=== PATIENT | male | born 2000 | race Caucasian/White ===

== ENCOUNTER 2025-11-03 17:49 | Emergency (ER) | payer OTHER, SELFPAY ==
[2025-11-03 19:02] VITALS: BP 139/96; PULSE 96; RESP 18; TEMP 37.5; O2SAT 98; BMI 25.7
--- NOTE | 2025-11-03 19:11 | EDNOTE_ITS ---
Upper Respiratory Inf. RME/HPI General Chief Complaint: Dental/Oral/Throat Stated Complaint: POSS THROAT ABSCESS; SENT BY [facility] Time Seen by Provider: 11/03/25 19:09 Arrival date/time: 11/03/25 17:49 25M with no significant PMH presents to ED with possible throat abscess after testing positive for strep at PCP. ABX were not sent because PCP got scared. Limitations: no limitations Related Data Previous Rx's ?Medication ?Instructions ?Recorded ibuprofen 800 mg tablet 800 mg PO TID PRN pain #30 t abs 12/02/21 amoxicillin 875 mg-potassium 1 tab PO BID 10 days #20 tabs 11/03/25 clavulanate 125 mg tablet Allergies Allergy/AdvReac Type Severity Reaction Status Date / Time No Known Allergies Allergy Verified 11/03/25 17:52 Review of Systems Review of Systems Systems Reviewed: All systems reviewed, normal except as documented ENT Ears, Nose, Mouth, and Throat: Reports as per HPI and Reports sore throat Past Medical History Social History SMOKING STATUS: Current every day smoker ED Exam General Limitations: Present no limitations General appearance: Present alert and in no apparent distress Head Head exam: Present atraumatic ENT ENT exam: Present mucous membranes moist Expanded ENT Exam Throat exam: Present tonsillar erythema and tonsillar exudate (R>L); Absent tonsillomegaly, R peritonsillar mass, L peritonsillar mass or muffled voice Neck Neck exam: Present normal inspection, full ROM and trachea midline Chest Chest inspection: Present normal inspection and symmetric chest wall rise Neurological Exam Neurological exam: Present alert and oriented X3 Psychiatric Psychiatric exam: Present normal affect and normal mood Skin Skin exam: Present warm, dry, intact and normal color Course Quality Measures none Vital Signs Vital signs: Vital Signs Temperature 99.5 F 11/03/25 19:02 Pulse Rate 96 11/03/25 19:02 Respiratory Rate 18 11/03/25 19:02 Blood Pressure 139/96 H 11/03/25 19:02 Pulse Oximetry (%) 98 11/03/25 19:02 Oxygen Delivery Method Room Air 11/03/25 19:02 O2 at 98% on RA and WNLs Upper Respiratory Infection MDM Narrative MDM Narrative:: 25M with no significant PMH presents to ED with possible throat abscess after testing positive for strep at PCP. ABX were not sent because PCP got scared. Physical exam reveals red oropharynx with exudates (R>L). No uvula deviation, muffled voice, or tongue elevation. Patient is afebrile, calm, and alert. Will give Augmentin in case of small abscess, which would be managed with meds anyway. Patient data External records reviewed:: [facility] previous records Clinical information provided by:: patient Social determinants that could affect healthcare access:: none Patient has the following chronic illnesses:: black How is presenting disease/condition affected by chronic disease/condition?: no chronic disease Evaluation data The following diagnostics were reviewed and interpreted by me:: other (specify) (none) Lab and/or radiology exams considered but not ordered:: not ordered Interpretation Summary: n/a Medications / Prescriptions Medications or Prescriptions considered but not ordered:: not ordered Medication administrations:: n/a Consultations Consultation(s) initiated? (list below): No Diagnosis Upper Respiratory Differential Diagnosis: upper respiratory infection, croup, otitis media, sinusitis, viral infection, bronchitis, influenza and pharyngitis Most likely diagnosis given after review of the tests above:: strep throat Admission Indicated Admission indicated?: not indicated Admission Request Was there a request for admission?: No Disposition Plan Disposition Plan: Discharge Discharge Attestation Discharge Attestation: The patient and all family members were given an opportunity to ask questions and understood the discharge instructions. Discharge instructions specifically effects, indications for sooner follow up or return to the emergency department, and the expected course of current diagnosis. Patient condition: Stable Discharge Plan Plan Patient Disposition: HOME (Self Care) Discharge Disposition comment: Stable Prescriptions/Referrals Prescriptions/Med Rec: New amoxicillin-pot clavulanate 875-125 mg tablet 1 tab PO BID 10 Days Qty: 20 0RF No Action ibuprofen 800 mg tablet 800 mg PO TID PRN (Reason: pain) Qty: 30 0RF Referrals: No Primary/Family,Physician [Primary Care Provider] - In 1 week Problem List Clinical Impression: Acute streptococcal pharyngitis Patient/Caregiver Discharge Instructions Education Materials: ED Pharyngitis, Strep (Confirmed) Additional Instructions: Please follow-up with PCP within 24-48 hours and return immediately if symptoms worsen. Ibuprofen/Tylenol can be used simultaneously for greater fever/pain control. Print Language: Tuval[place] Stand Alone Forms: Patient Portal Info Letter TED/TWIN Supervising Physician TED/TWIN Supervising Physician: Dr. Hill
== END 2025-11-03 19:56 | disposition home or self-care (01) ==
PROVIDERS: Emergency Provider Emergency Medicine
DX: J02.0 Streptococcal pharyngitis (principal); F17.290 Nicotine dependence, other tobacco product, uncomplicated
CPT/HCPCS: 99281